=== PATIENT | male | born 1965 ===

== ENCOUNTER 2020-07-24 14:00 | Outpatient (RCR) | payer OTHER, SELFPAY ==
[2020-07-24 14:06] VITALS: BP_SYST 55; BP_SYST 90; BMI 11.0
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
--- NOTE | 2020-07-31 13:41 | PCPTNOTE ---
attempted to return pt's call, but voicemail full.
== END 2020-10-08 10:03 | disposition home or self-care (01) ==
LOC: ANHPT 14:00
DX: M48.02 Spinal stenosis, cervical region (principal); M43.22 Fusion of spine, cervical region; G82.50 Quadriplegia, unspecified; Z87.828 Personal history of other (healed) physical injury and trauma
CPT/HCPCS: 97163